=== PATIENT | male | born 1945 | race African-American/Black ===

== ENCOUNTER 2021-07-05 22:26 | Inpatient (IN) | payer MEDICARE, MEDICAID ==
[~2021-07-05] VITALS: Ht 172.7 cm; Wt 87.1 kg
[2021-07-06] LABS: BASOPHILS % 0.5 % (0.0-2.0); EOSINOPHILS % 1.9 % (0.0-5.0); HEMATOCRIT. 47.6 % (42.0-52.0); HEMOGLOBIN. 15.4 g/dL (14.0-18.0); LYMPHOCYTES % 13.3 % (20.0-50.0); MEAN CORPUSCULAR HEMOGLOBIN 28.3 pg (28.0-32.0); MEAN CORPUSCULAR VOLUME 87.5 fL (80.0-94.0); MEAN PLATELET VOLUME 9.9 fl (7.4-10.4); NEUTROPHILS % 76.3 % (40.0-76.0); PLATELET 136 x1000/uL (130-400); RED BLOOD CELL COUNT 5.44 mill/uL (4.7-6.1); RED CELL DISTRIBUTION WIDTH 16.3 % (11.6-14.6)
[2021-07-06 00:05] LABS: CHLORIDE 112 mEq/L (98-107)
[2021-07-06] MEDS ORDERED: ALBUTEROL (0.083%) 2.5MG/3ML NEB HHN STA (00:46)
[2021-07-06] MEDS ORDERED: DEXAMETHASONE 4MG/ML 1ML VIAL IV STA (00:46)
[2021-07-06] MEDS ORDERED: IPRATROPIUM BROMIDE (0.02%) 0.5MG/2.5ML NEB HHN STA (00:46)
[2021-07-06] MEDS ORDERED: VANCOMYCIN 1 G PREMIX 200 ML IV STA (01:36)
[2021-07-06] MEDS ORDERED: PIPERACILLIN/TAZOBACTAM 3.375GM/50ML PREMIX IV SCH (01:36)
[2021-07-06] MEDS ORDERED: FUROSEMIDE 40MG/4ML VIAL IVP ONE (03:45)
[2021-07-06] MEDS: LORAZEPAM 2MG/ML CPJ IV PRN (09:33)
[2021-07-07] VITALS (7 sets, daily range): BP systolic 99–127; BP diastolic 56–89
[2021-07-07] MEDS ORDERED: DIGO-37 PO (01:33)
[2021-07-07] MEDS ORDERED: TAMS-11 PO (01:33)
[2021-07-07] MEDS ORDERED: CARV3.1242 MT (01:33)
[2021-07-07] MEDS ORDERED: IPRA3AMP31 IH (01:33)
[2021-07-07] MEDS ORDERED: MULT-230 MT (01:33)
[2021-07-07] MEDS ORDERED: ASPI-1497 MT (01:33)
[2021-07-07] MEDS ORDERED: LISI20TA31 PO (01:33)
[2021-07-07] MEDS ORDERED: FAMO20TA8 PO (01:33)
[2021-07-07] MEDS ORDERED: SPIR25TA6 PO (01:33)
[2021-07-07] MEDS ORDERED: TOPUD MT (01:33)
[2021-07-07] MEDS ORDERED: SENN-257 MT (01:33)
[2021-07-07] MEDS ORDERED: VIT500LI PO (01:33)
[2021-07-07] MEDS ORDERED: CEFTRIAXONE SODIUM 1 G/VIAL IV SCH (01:42)
[2021-07-07] MEDS ORDERED: LORAZEPAM 2MG/ML CPJ IV PRN (01:45)
[2021-07-07] MEDS ORDERED: ACETAMINOPHEN 325MG TABLET PO PRN ×2 (02:15→07:00)
[2021-07-07] MEDS ORDERED: DEXAMETHASONE 4MG TABLET PO SCH (03:00)
[2021-07-07] MEDS ORDERED: AZITHROMYCIN 500 MG in DEXT 5% WATER 250 ML IV SCH (03:00)
[2021-07-07] MEDS: CEFTRIAXONE 1,000 MG in DEXTROSE 5% WATER 50 ML IV SCH (04:33)
[2021-07-07] MEDS ORDERED: IPRATROPIUM/ALBUTEROL 0.5-3(2.5)MG/3ML NEB HHN PRN (04:45)
[2021-07-07] MEDS: IPRATROPIUM/ALBUTEROL 0.5-3(2.5)MG/3ML NEB HHN SCH ×4 (05:30→19:35)
[2021-07-07] MEDS: FAMOTIDINE 20MG/2ML VIAL IV SCH (08:48)
[2021-07-07] MEDS: ASPIRIN 81MG TABLET PO SCH (08:48)
[2021-07-07] MEDS: MULTIVITAMINS,THER W-MINERALS TABLET PO SCH (08:49)
[2021-07-07] MEDS: LISINOPRIL 20MG TABLET PO SCH (08:49)
[2021-07-07] MEDS: TAMSULOSIN HCL 0.4MG SR CAPSULE PO SCH (08:50)
[2021-07-07] MEDS: ASCORBIC ACID 500 MG TABLET PO SCH (08:50)
[2021-07-07] MEDS: GUAIFENESIN 600MG ER TABLET PO SCH ×2 (08:50→20:06)
[2021-07-07] MEDS: SPIRONOLACTONE 25MG TABLET PO SCH (08:50)
[2021-07-07] MEDS ORDERED: LISINOPRIL 20MG TABLET PO SCH (09:00)
[2021-07-07] MEDS ORDERED: CARVEDILOL 3.125 MG TABLET PO SCH (09:00)
[2021-07-07] MEDS ORDERED: ASCORBIC ACID 500 MG TABLET PO SCH (09:00)
[2021-07-07] MEDS ORDERED: SPIRONOLACTONE 25MG TABLET PO SCH (09:00)
[2021-07-07] MEDS ORDERED: ENOXAPARIN 40MG/0.4ML SYR SUBCUT ONE (09:00)
[2021-07-07] MEDS ORDERED: SENNOSIDES 8.6MG TABLET PO SCH (09:00)
[2021-07-07] MEDS ORDERED: DEXAMETHASONE 6MG TABLET PO SCH (09:00)
[2021-07-07] MEDS ORDERED: MULTIVITAMINS,THER W-MINERALS TABLET PO SCH (09:00)
[2021-07-07] MEDS ORDERED: DIGOXIN 125MCG TABLET PO SCH (09:00)
[2021-07-07] MEDS ORDERED: ASPIRIN 81MG EC TABLET PO SCH (09:00)
[2021-07-07] MEDS ORDERED: ENOXAPARIN 30MG/0.3ML SYR SUBCUT SCH (09:00)
[2021-07-07] MEDS: FUROSEMIDE 40MG/4ML VIAL IVP SCH ×2 (10:26→18:09)
[2021-07-07] MEDS: LORAZEPAM 2MG/ML CPJ IV PRN ×2 (11:23→18:39)
[2021-07-07 17:44] LABS: BG BASE EXCESS 1.4 mmol/L (-2.0-2.0); BG CARBOXYHEMOGLOBIN 0.1 % (0.5-1.5); BG DEOXYHEMOGLOBIN 1.5 % (0.0-5.0); BG FRACTION INSPIRED OXYGEN 50; BG HCO3 ACT 28.4 mmol/L (22.0-26.0); BG METHEMOGLOBIN 0.3 % (0.0-1.5); BG OXYGEN SATURATION 98.5 % (92.0-98.5); BG OXYHEMOGLOBIN 98.1 % (94.0-97.0); BG PCO2 53.4 mmHg (35.0-45.0); BG PH 7.343 (7.350-7.450); BG PO2 133.5 mmHg (75.0-100.0); BG SAMPLE SITE RIGHT BRACHIAL; BG TOTAL HEMOGLOBIN 16.2 g/dL (12.0-18.0); BG TOTAL RESPIRATORY RATE 28 b/min; BG VENT MODE MASK - BIPAP
[2021-07-07] MEDS: DIGOXIN 125MCG TABLET PO SCH (18:10)
[2021-07-07] MEDS: SENNOSIDES 8.6MG TABLET PO SCH (20:06)
[2021-07-07] MEDS ORDERED: TAMSULOSIN HCL 0.4MG SR CAPSULE PO SCH (21:00)
[2021-07-08] VITALS: BP 114/55
[2021-07-08] MEDS: IPRATROPIUM/ALBUTEROL 0.5-3(2.5)MG/3ML NEB HHN SCH ×6 (00:06→21:00)
[2021-07-08] MEDS: AZITHROMYCIN 500 MG in DEXT 5% WATER 250 ML IV SCH (00:51)
[2021-07-08] MEDS: LORAZEPAM 2MG/ML CPJ IV PRN ×3 (01:13→22:41)
[2021-07-08] MEDS: CEFTRIAXONE 1,000 MG in DEXTROSE 5% WATER 50 ML IV SCH (03:59)
[2021-07-08 04:00] VITALS: BP 116/82
[2021-07-08 07:01] LABS: HEMATOCRIT. 45.5 % (42.0-52.0); HEMOGLOBIN. 14.7 g/dL (14.0-18.0); MEAN CORPUSCULAR HEMOGLOBIN 28.1 pg (28.0-32.0); MEAN CORPUSCULAR VOLUME 87.1 fL (80.0-94.0); MEAN PLATELET VOLUME 10.9 fl (7.4-10.4); PLATELET 179 x1000/uL (130-400); RED BLOOD CELL COUNT 5.22 mill/uL (4.7-6.1); RED CELL DISTRIBUTION WIDTH 15.9 % (11.6-14.6)
[2021-07-08 07:19] LABS: CHLORIDE 104 mEq/L (98-107)
[2021-07-08] MEDS: FUROSEMIDE 40MG/4ML VIAL IVP SCH ×2 (07:47→17:04)
[2021-07-08 07:53] VITALS: BP 101/58
[2021-07-08] MEDS: GUAIFENESIN 600MG ER TABLET PO SCH ×2 (08:02→21:31)
[2021-07-08] MEDS: ASPIRIN 81MG TABLET PO SCH (08:02)
[2021-07-08] MEDS: MULTIVITAMINS,THER W-MINERALS TABLET PO SCH (08:02)
[2021-07-08] MEDS: TAMSULOSIN HCL 0.4MG SR CAPSULE PO SCH (08:02)
[2021-07-08] MEDS: ASCORBIC ACID 500 MG TABLET PO SCH (08:02)
[2021-07-08] MEDS: LISINOPRIL 20MG TABLET PO SCH (08:03)
[2021-07-08] MEDS: SPIRONOLACTONE 25MG TABLET PO SCH (08:03)
[2021-07-08] MEDS: FAMOTIDINE 20MG/2ML VIAL IV SCH (08:03)
[2021-07-08] MEDS: ENOXAPARIN 40MG/0.4ML SYR SUBCUT SCH (08:04)
[2021-07-08 12:00] VITALS: BP 114/77
[2021-07-08 16:00] VITALS: BP 109/75
[2021-07-08] MEDS: DIGOXIN 125MCG TABLET PO SCH (17:04)
[2021-07-08 19:14] LABS: PLATELET ESTIMATE NORMAL
[2021-07-08 20:00] VITALS: BP 115/68
[2021-07-08] MEDS: SENNOSIDES 8.6MG TABLET PO SCH (21:31)
[2021-07-09] VITALS: BP 111/57
[2021-07-09] MEDS: AZITHROMYCIN 500 MG in DEXT 5% WATER 250 ML IV SCH (00:17)
[2021-07-09] MEDS: IPRATROPIUM/ALBUTEROL 0.5-3(2.5)MG/3ML NEB HHN SCH ×6 (01:08→20:32)
[2021-07-09] MEDS: CEFTRIAXONE 1,000 MG in DEXTROSE 5% WATER 50 ML IV SCH (03:30)
[2021-07-09 04:00] VITALS: BP 118/75
[2021-07-09 05:40] LABS: CHLORIDE 106 mEq/L (98-107)
[2021-07-09] MEDS: FUROSEMIDE 40MG/4ML VIAL IVP SCH ×2 (07:15→16:30)
[2021-07-09 07:44] LABS: BG BASE EXCESS 4.8 mmol/L (-2.0-2.0); BG CARBOXYHEMOGLOBIN 0.4 % (0.5-1.5); BG DEOXYHEMOGLOBIN 3.3 % (0.0-5.0); BG HCO3 ACT 30.8 mmol/L (22.0-26.0); BG METHEMOGLOBIN 0.5 % (0.0-1.5); BG OXYGEN SATURATION 96.7 % (92.0-98.5); BG OXYHEMOGLOBIN 95.8 % (94.0-97.0); BG PCO2 50.6 mmHg (35.0-45.0); BG PH 7.402 (7.350-7.450); BG PO2 91.1 mmHg (75.0-100.0); BG SAMPLE SITE RIGHT RADIAL; BG TOTAL HEMOGLOBIN 15.1 g/dL (12.0-18.0); BG VENT MODE NASAL CANNULA
[2021-07-09 08:00] VITALS: BP 124/64
[2021-07-09] MEDS: FAMOTIDINE 20MG/2ML VIAL IV SCH (09:24)
[2021-07-09] MEDS: SPIRONOLACTONE 25MG TABLET PO SCH (09:25)
[2021-07-09] MEDS: ASPIRIN 81MG TABLET PO SCH (09:25)
[2021-07-09] MEDS: ASCORBIC ACID 500 MG TABLET PO SCH (09:26)
[2021-07-09] MEDS: GUAIFENESIN 600MG ER TABLET PO SCH ×2 (09:26→20:11)
[2021-07-09] MEDS: TAMSULOSIN HCL 0.4MG SR CAPSULE PO SCH (09:26)
[2021-07-09] MEDS: MULTIVITAMINS,THER W-MINERALS TABLET PO SCH (09:26)
[2021-07-09] MEDS: LISINOPRIL 20MG TABLET PO SCH (09:27)
[2021-07-09] MEDS: ENOXAPARIN 40MG/0.4ML SYR SUBCUT SCH (09:27)
[2021-07-09] MEDS: LORAZEPAM 2MG/ML CPJ IV PRN (10:18)
[2021-07-09 12:00] VITALS: BP 132/58
[2021-07-09 13:30] LABS: BG BASE EXCESS 4.3 mmol/L (-2.0-2.0); BG CARBOXYHEMOGLOBIN 0.6 % (0.5-1.5); BG DEOXYHEMOGLOBIN 7.1 % (0.0-5.0); BG HCO3 ACT 31.6 mmol/L (22.0-26.0); BG METHEMOGLOBIN 0.2 % (0.0-1.5); BG OXYGEN SATURATION 92.8 % (92.0-98.5); BG OXYHEMOGLOBIN 92.1 % (94.0-97.0); BG PCO2 57.4 mmHg (35.0-45.0); BG PH 7.358 (7.350-7.450); BG PO2 70.9 mmHg (75.0-100.0); BG SAMPLE SITE RIGHT RADIAL; BG TOTAL HEMOGLOBIN 15.5 g/dL (12.0-18.0); BG VENT MODE NASAL CANNULA
[2021-07-09 16:00] VITALS: BP 134/58
[2021-07-09] MEDS: DIGOXIN 125MCG TABLET PO SCH (18:25)
[2021-07-09 20:00] VITALS: BP 119/80
[2021-07-09] MEDS: SENNOSIDES 8.6MG TABLET PO SCH (20:11)
[2021-07-10] VITALS: BP 133/72
[2021-07-10] MEDS: IPRATROPIUM/ALBUTEROL 0.5-3(2.5)MG/3ML NEB HHN SCH ×4 (00:53→21:05)
[2021-07-10 04:00] VITALS: BP 125/60
[2021-07-10] MEDS: CEFTRIAXONE 1,000 MG in DEXTROSE 5% WATER 50 ML IV SCH (04:03)
[2021-07-10] MEDS: FUROSEMIDE 40MG/4ML VIAL IVP SCH ×2 (07:15→17:15)
[2021-07-10 08:00] VITALS: BP 124/58
[2021-07-10] MEDS: ENOXAPARIN 40MG/0.4ML SYR SUBCUT SCH (09:00)
[2021-07-10] MEDS: ASCORBIC ACID 500 MG TABLET PO SCH (09:10)
[2021-07-10] MEDS: MULTIVITAMINS,THER W-MINERALS TABLET PO SCH (09:10)
[2021-07-10] MEDS: AZITHROMYCIN 500 MG TABLET PO SCH (09:10)
[2021-07-10] MEDS: ASPIRIN 81MG TABLET PO SCH (09:11)
[2021-07-10] MEDS: FAMOTIDINE 20MG/2ML VIAL IV SCH (09:11)
[2021-07-10] MEDS: LISINOPRIL 20MG TABLET PO SCH (09:11)
[2021-07-10] MEDS: TAMSULOSIN HCL 0.4MG SR CAPSULE PO SCH (09:11)
[2021-07-10] MEDS: SPIRONOLACTONE 25MG TABLET PO SCH (09:12)
[2021-07-10] MEDS: GUAIFENESIN 600MG ER TABLET PO SCH ×2 (09:18→21:35)
[2021-07-10] MEDS: LORAZEPAM 2MG/ML CPJ IV PRN (10:36)
[2021-07-10 12:00] VITALS: BP 131/62
[2021-07-10 16:00] VITALS: BP 124/64
[2021-07-10] MEDS: DIGOXIN 125MCG TABLET PO SCH (18:24)
[2021-07-10 20:00] VITALS: BP 105/76
[2021-07-10] MEDS: FAMOTIDINE 20MG TABLET PO SCH (21:35)
[2021-07-10] MEDS: SENNOSIDES 8.6MG TABLET PO SCH (21:35)
[2021-07-11] VITALS (7 sets, daily range): BP systolic 108–135; BP diastolic 69–89
[2021-07-11 01:03] LABS: BASOPHILS % 0.6 % (0.0-2.0); EOSINOPHILS % 2.4 % (0.0-5.0); HEMATOCRIT. 48.1 % (42.0-52.0); LYMPHOCYTES % 12.5 % (20.0-50.0); MEAN CORPUSCULAR HEMOGLOBIN 28.7 pg (28.0-32.0); MEAN CORPUSCULAR VOLUME 86.5 fL (80.0-94.0); MEAN PLATELET VOLUME 10.4 fl (7.4-10.4); MONOCYTES % 9.1 % (2.0-8.0); NEUTROPHILS % 75.4 % (40.0-76.0); PLATELET 156 x1000/uL (130-400); RED BLOOD CELL COUNT 5.56 mill/uL (4.7-6.1); RED CELL DISTRIBUTION WIDTH 15.5 % (11.6-14.6)
[2021-07-11] MEDS: LORAZEPAM 2MG/ML CPJ IV PRN (01:04)
[2021-07-11 01:10] LABS: CHLORIDE 105 mEq/L (98-107)
[2021-07-11] MEDS: CEFTRIAXONE 1,000 MG in DEXTROSE 5% WATER 50 ML IV SCH (03:11)
[2021-07-11] MEDS ORDERED: FUROSEMIDE 40MG TABLET PO SCH (09:00)
[2021-07-11] MEDS: IPRATROPIUM/ALBUTEROL 0.5-3(2.5)MG/3ML NEB HHN SCH ×2 (09:11→12:22)
[2021-07-11] MEDS: ASPIRIN 81MG TABLET PO SCH (10:10)
[2021-07-11] MEDS: ENOXAPARIN 40MG/0.4ML SYR SUBCUT SCH (10:10)
[2021-07-11] MEDS: TAMSULOSIN HCL 0.4MG SR CAPSULE PO SCH (10:11)
[2021-07-11] MEDS: LISINOPRIL 20MG TABLET PO SCH (10:11)
[2021-07-11] MEDS: MULTIVITAMINS,THER W-MINERALS TABLET PO SCH (10:11)
[2021-07-11] MEDS: AZITHROMYCIN 500 MG TABLET PO SCH (10:11)
[2021-07-11] MEDS: ASCORBIC ACID 500 MG TABLET PO SCH (10:11)
[2021-07-11] MEDS: SPIRONOLACTONE 25MG TABLET PO SCH (10:12)
[2021-07-11] MEDS: FAMOTIDINE 20MG TABLET PO SCH (10:12)
== END 2021-07-11 15:00 | DRG 177 ==
LOC: ER 22:26 → 5EST 07-06 02:43 → EDBEDREQSVC 07-06 04:17 → EDBEDREQTM 07-06 04:17 → ENRESERV 07-06 22:39 → 5EST 07-10 19:00
PROVIDERS: ADMIT Internal Medicine; ATTEND Internal Medicine
PROC: 5A09457 Assistance with Respiratory Ventilation, 24-96 Consecutive Hours, Continuous Positive Airway Pressure (ICD-10-PCS; principal; 2021-07-06)
PROC: 5A09357 Assistance with Respiratory Ventilation, Less than 24 Consecutive Hours, Continuous Positive Airway Pressure (ICD-10-PCS; 2021-07-08)
DX: U07.1 COVID-19 (principal); E43 Unspecified severe protein-calorie malnutrition; J96.02 Acute respiratory failure with hypercapnia; J12.82 Pneumonia due to coronavirus disease 2019; I50.43 Acute on chronic combined systolic (congestive) and diastolic (congestive) heart failure; E66.2 Morbid (severe) obesity with alveolar hypoventilation; G93.40 Encephalopathy, unspecified; I69.354 Hemiplegia and hemiparesis following cerebral infarction affecting left non-dominant side; I11.0 Hypertensive heart disease with heart failure; E87.8 Other disorders of electrolyte and fluid balance, not elsewhere classified; Z95.810 Presence of automatic (implantable) cardiac defibrillator; Z68.29 Body mass index [BMI] 29.0-29.9, adult
CPT/HCPCS: 36415; 36600; 71045; 80048; 80053; 82375; 82805; 83880; 84484; 85025; 87426; 87635; 93005; 94640; 94644; 94660; 99291; C1893; J0456; J0696; J1100; J1650; J1940; J2060; J2543; J3370; J3490; J7060; J8540